=== PATIENT | female | born 2000 | race Caucasian/White ===

== ENCOUNTER 2023-03-03 10:29 | Emergency (ER) | payer MEDICAID, SELFPAY ==
[2023-03-03 10:31] VITALS: BP 114/59; PULSE 73; RESP 18; TEMP 36.6; O2SAT 98; BMI 25.7
--- NOTE | 2023-03-03 10:48 | ED.GENADULT ---
HPI - General Adult General Chief complaint: General Medical Stated complaint: medication Time Seen by Provider: 03/03/23 10:43 Source: patient and family Mode of arrival: ambulatory Limitations: no limitations History of Present Illness HPI narrative: 23-year-old female with history of depression who is currently on Paxil 20 mg daily presents the ER seeking medication refill. Patient reports she was prescribed Paxil by her psychiatrist 2 months ago. She has been taking it since. She ran out of her medication 1 week ago. She is unable to get hold of her psychiatrist to give her a refill. She does have an appointment on Sunday to see her psychiatrist. She reports she has been feeling dizzy, nauseous and generally unwell since running out of the medication. She denies any SI or HI. Related Data Previous Rx's Medication Instructions Recorded loratadine 10 mg tablet 10 mg PO DAILY #30 tabs 09/19/21 paroxetine HCl 20 mg tablet (Paxil) 20 mg PO DAILY #14 tabs 03/03/23 Allergies Allergy/AdvReac Type Severity Reaction Status Date / Time cat and dogs Allergy Unknown watery eyes Uncoded 05/14/20 00:00 Review of Systems Review of Systems: Yes all other systems are reviewed and are negative Constitutional: Constitutional: Reports no additional constitutional complaints, Denies body ache(s), Denies chills, Denies fever(s), Denies headache(s) and Denies weakness Eyes: Eyes: Reports no additional eye complaints and Denies change in vision ENT: Reports system reviewed and no additional complaints, except as documented, Reports dizziness, Denies headache(s), Denies nasal congestion, Denies nasal discharge and Denies neck pain Cardiovascular: Cardiovascular: Reports no additional cardiovascular complaints, Denies chest pain, Denies leg edema and Denies dyspnea Respiratory: Respiratory: Reports no additional respiratory complaints, Denies cough and Denies dyspnea Gastrointestinal: Gastrointestinal: Reports no additional gastrointestinal complaints, Denies abdominal pain, Denies diarrhea, Reports nausea and Denies vomiting Genitourinary: Genitourinary: Reports no additional female genitourinary complaints and Denies urinary incontinence Musculoskeletal: Musculoskeletal: Reports no additional musculoskeletal complaints, Denies back pain, Denies arthralgias, Denies joint swelling, Denies neck pain, Denies numbness and Denies tingling Integumentary/Breasts: Skin/Breast: Reports system reviewed and no additional complaints, except as docu and Denies rash Neurologic: Reports system reviewed and no additional complaints, except as documented, Reports dizziness, Denies headache(s), Denies numbness, Denies tingling and Denies weakness PMFSH Past Medical History Attestation statement: The following information was validated with the patient. Source: old records reviewed and nursing notes reviewed Social History Social History Alcohol intake: never Smoked in Last 30 Days: No Use of substances other than those prescribed or required for medical reasons: Yes Substance Use Type: Marijuana Advance Directives: No Advance Directives Information Provided: No Physical Exam ED Vital Signs: Vital Signs - 24 hr 03/03/23 10:31 Temperature 98 F Pulse Rate 73 Respiratory Rate 18 Blood Pressure 114/59 L Pulse Oximetry 98 Oxygen Delivery Method Room Air BMI result Body Mass Index 25.7 Const General: cooperative, healthy appearing, comfortable and no acute distress Orientation/consciousness: patient oriented x3 Limitations: no limitations HENMT Head: Yes normal to inspection Eyes General: appearance normal, both eyes and all related structures Neck Neck: Yes normal visual inspection Chest Chest palpation & inspection: normal inspection of the chest Resp Effort & Inspection: normal respiratory effort Cardio Peripheral pulses: Peripheral pulses 2+ throughout Skin General skin exam: no rashes or lesions noted Neuro General: patient oriented x3 and moves all extremities Cognition (Neuro): normal cognition Gait exam (Neuro): Normal gait present Medical Decision Making Medical Decision Making MDM Narrative: 23 yo female here seeking medication refill for paxil which she ran out of 1 week ago. Unable to contact her prescriber. She does have f/u on Sunday. C/o dizziness, nausea, generally unwell. VSS NO SI/HI. Will give refill for 2 weeks of Paxil. Differential Diagnosis Differential Diagnoses: The differential diagnosis associated with the presentation includes Discharge Plan Discharge Clinical Impression: Medication refill Patient Disposition: Home, Self-Care Instructions: Medicine Refill (ED) Additional Instructions: Keep your appointment with your psychiatrist on Sunday Prescriptions: New paroxetine HCl [Paxil] 20 mg tablet 20 mg PO DAILY Qty: 14 0RF Interventions: ED Discharge Assessment Last Done: 03/03/23 10:59 Discharge Date/Time: 03/03/23 11:00
--- OUTSIDE RECORDS SUMMARY | 2023-03-03 10:54 | XMS_ITS | Continuity of Care Document ---
Author Name Unknown Organization [facility] Address [address] [place] [address]- Care Team Providers Care Legal Recovery Specialist Name Role Phone Sarah Parisi MD Primary Care Physician Encounter [facility] [place] Date(s): 05/02/22 - 06/01/22 [facility] [address], [place] [address] Attending Physician: Sergio Singh DO Referring Physician: Sarah Parisi MD Allergies, Adverse Reactions, Alerts No Known Allergies Medications Atrovent HFA 17 mcg/inh inhalation aerosol 2 puffs, Inhalation, Every 4 hours, use with spacer chamber not to exceed 12 puffs/day Use prior toexercise, # 1 each, 2 Refills, Maintenance, 12/18/13 16:19:05, 2 puffs Inhalation Every 4 hours,Instr:use with spacer chamber; not to exceed 12 puffs... Start Date: 12/18/13 Status: Ordered ProAir HFA 90 mcg/inh inhalation aerosol with adapter 2 puffs, Inhalation, Every 4 hours, PRN for wheezing, use with spacer chamber as directed 15 minutes before exercise, # 1 each, 4 Refills, Maintenance, 01/29/15 14:26:33, Aerosol, 2 puffs Inhalation Every 4 hours,PRN:for wheezing,Instr:use with space... Start Date: 01/29/15 Status: Ordered Singulair 10 mg oral tablet 1 tablet = 10 mg, By Mouth, Daily in PM, # 30 tablet, 6 Refills, Maintenance, 01/29/15 14:25:59, Tablet, 1 tablet By Mouth Daily in PM Start Date: 01/29/15 Status: Ordered Social History Social History Type Response Smoking Status Never smoker; Tobacc o user in household: No entered on: 01/29/15 Sex
--- OUTSIDE RECORDS SUMMARY | 2023-03-03 10:54 | XMS_ITS | Continuity of Care Document ---
Author Name Unknown Organization [facility] Address [address] [place] [address]- Care Team Providers Care Ceramic Sprayer Name Role Phone Po Sarah TOLEDO Primary Care Physician [place] [facility] [place] - [place]/22 [facility] [address], [place] [address] Attending Physician: Linda Beck Admitting Physician: AdmtrLinda Referring Physician: Admtr, Ar8 Allergies, Adverse Reactions, Alerts No Known Allergies [...]
--- OUTSIDE RECORDS SUMMARY | 2023-03-03 10:54 | XMS_ITS | Continuity of Care Document ---
Author Name Unknown Organization [facility] Address [address] [place] [address]- Care Team Providers Care Science Job Titles Name Role Phone Sarah Parisi MD Primary Care Physician [place] [facility] [place] 01/[place] - 01/09/22 [facility] [address], [place] [email or web address] Attending Physician: Sergio Singh DO Referring Physician: [...] in PM Start Date: 01/29/15 Status: Ordered Vital Signs Most recent to oldest [Reference Range]: 1 Height 160.0 cm (01/02/22 3:27 PM) Oxygen Saturation [94-100 %] 100 % (01/02/22 3:27 PM) Pulse Rate [55-90 bpm] 74 bpm (01/02/22 3:27 PM) Blood Pressure [90-138/55-84 mm Hg] 119/ 69mm Hg (01/02/22 3:27 PM) Temperature [96.8-100.4 DegF] 98.7 DegF (01/02/22 3:27 PM) Mode of Delivery (Oxygen) Room air (01/02/22 3:27 PM) Blood pressure sites Arm, right (01/02/22 3:27 PM) Temperature Route Temporal (01/02/22 3:27 PM) Social History Social History Type Response Smoking Status Never smoker; Tobacc o user in household: No entered on: 01/29/15 Sex
--- OUTSIDE RECORDS SUMMARY | 2023-03-03 10:54 | XMS_ITS | Continuity of Care Document ---
Author Name Unknown Organization [facility] Address [address] [place] [address]- Care Team Providers Care Lead Massage Therapist Name Role Phone Po Sarah TOLEDO Primary Care Physician [place] [facility] [place] 01/02/22 - 02/01/22 [facility] [address] [place], [place] [address] [place] Attending Physician: Linda Beck Admitting Physician: AdmtrLinda [...]
--- NOTE | 2023-03-03 10:57 | PC.NURSE ---
Patient presents for refill of prescription Paxil. Patient has an appointment with her psychiatrist on sunday and needs more medication to get her to that appointment. Patient is well appearing, no complaints at this time.
== END 2023-03-03 11:00 | disposition home or self-care (01) ==
PROVIDERS: Emergency Provider Emergency Medicine; PCP Internal Medicine
DX: Z76.0 Encounter for issue of repeat prescription (principal); F32.A Depression, unspecified; F12.90 Cannabis use, unspecified, uncomplicated
CPT/HCPCS: 99282; 99283

== ENCOUNTER 2024-03-27 09:14 | Outpatient (AMB) | payer OTHER, SELFPAY ==
[2024-03-27 09:17] VITALS: BP 122/82; PULSE 85; O2SAT 98; BMI 28.5
--- NOTE | 2024-03-27 09:17 | A.OFFPC_ITS ---
Vital Signs 03/27/24 09:17 Height 5 ft 3 in Weight 161 lb BMI 28.5 BP 122/82 Blood Pressure Location Lt brachial Position Sitting Pulse 85 Pulse Source Pulse Oximeter Pulse Oximetry (%) 98 Oxygen Delivery Method Room Air Intake Visit Reasons: follow up Administrative Support Manager Required: No Fitness Professional: Not Required per policy Accompanied by: Self / Same As Patient Allergies cat and dogs Allergy (Unknown, Uncoded 03/27/24 09:17) watery eyes Medication List - Last Reconciled 03/27/24 by Sarah Parisi MD albuterol sulfate 90 mcg/actuation (ProAir HFA) 2 puffs inhalation Q4-6H PRN diphenhydramine HCl (Benadryl Allergy) 25 mg PO BEDTIME PRN fexofenadine (Bernarda Allergy) 180 mg PO DAILY fluticasone propionate 50 mcg/actuation (Allergy Relief (fluticasone)) 2 sprays intranasal DAILY 1 month hydroxyzine HCl 50 mg PO BID PRN mometasone (Asmanex Twisthaler) 1 inh inhalation QPM montelukast (Singulair) 10 mg PO BEDTIME paroxetine HCl (Paxil) 20 mg PO DAILY Tobacco use date assessed: 03/27/24 Dental Screening Dental Screen Date: 03/27/24 Did you have a dental visit in the last 12 months?: Yes Did you have a dental problem in the last 6 months where you did not have access to dental care?: No Was dental information given to patient?: Patient has dentist HPI follow up HPI Details 24-year-old overweight female with a his tory of asthma and generalized anxiety disorder coming in for follow-up. Patient was last seen in 2021. moves to [place]- takes paroxetine. doing good decline counselling. asthma - patient's asthma is not under control as well as allergies [facility] Medical History (Updated 03/27/24 @ 10:07 by Sarah Parisi MD) Asthma, mild intermittent, poorly controlled Exercise-induced asthma Surgical History (Updated 07/27/23 @ 15:05 by Samia Little) No pertinent past surgical history Family History Mother No problems noted. Father No problems noted. Brother Crohn's disease Other Mental health disorder Social History Housing: Apartment Alcohol intake: current Alcohol intake frequency: holidays/special occasions only Patient Tobacco Use Status: Never used Tobacco Second Hand Smoke Exposure: No Substance Use Type: Marijuana service: No Current occupational status: employed Cognitive needs: No Hearing needs: No Vision needs: Yes Questionnaire PHQ-9 Over the last 2 weeks, how often have you been bothered by any of the following problems? 1. Little interest or pleasure in doing things: not at all 2. Feeling down, depressed, or hopeless: not at all 3. Trouble falling or staying asleep, or sleeping too much: not at all 4. Feeling tired or having little energy: not at all 5. Poor appetite or overeating: not at all 6. Feeling bad about yourself - or that you are a failure or have let yourself or your family down: not at all 7. Trouble concentrating on things, such as reading the newspaper or watching television: not at all 8. Moving or speaking so slowly that other people could have noticed. Or the opposite - being so fidgety or restless that you have been moving around a lot more than usual: not at all 9. Thoughts that you would be better off or of hurting yourself in some way: not at all Total score: 0 Source: Developed by Drs. Boogie Evans, Joanne Martinez, Dashawn Painting and colleagues, with an educational kermit from [employer]. Thrive Questionnaire Date Thrive assessed: 03/27/24 I am a: Patient What is your living situation today?: I have a steady place to live Within the past 12 months, did the food you bought not last and you didn't have the money to get more?: Never true Within the past 12 months, did you worry whether your food would run out before you got money to buy more?: Never true Do you have trouble paying for medicines?: No Do you have trouble getting transportation to medical appointments?: No Do you have trouble paying your heating and electricity bill?: No Do you have trouble taking care of your child, family member or friend?: No Do you have trouble with day-to-day activities such as bathing, preparing meals, shopping, managing finances, etc.?: No Are you currently unemployed and looking for a job?: No Are you interested in more education?: No Please select the resources that you would like help with: None THRIVE Score: 0 AUDIT C Alcohol Use Questionnaire (AUDIT-C) 1. How often do you have a drink containing alcohol?: Monthly or less 2. How many drinks containing alcohol do you have on a typical day when you are drinking?: 1 or 2 3. How often do you have six or more drinks on one occasion?: Never Total Score: 1 SONIA-7 AMB Questionnaire SONIA-7 Date SONIA - 7 assessed: 03/27/24 Feeling nervous, anxious, or on edge: 0 = Not at all Not being able to stop or control worryin = Not at all Worrying too much about different things: 0 = Not at all Trouble relaxin = Not at all Being so restless that it is hard to sit still: 0 = Not at all Becoming easily annoyed or irritable: 0 = Not at all Feeling afraid as if something awful might happen: 0 = Not at all Total SONIA-7 score (0-4 normal; 5-9 mild; 10-14 moderate; 15-21 severe): 0 Source: Developed by Drs. Boogie Evans, Joanne Martinez, Dashawn Painting and colleagues, with an educational kermit from [employer]. Physical exam (Primary Care) Vital Signs: Last Vital Signs Pulse 85 03/27/24 09:17 BP 122/82 03/27/24 09:17 Pulse Ox 98 03/27/24 09:17 Oxygen Delivery Method Room Air 03/27/24 09:17 BMI result Body Mass Index 28.5 Tobacco/Smoking Status: Tobacco use Status Tobacco use date assessed 03/27/24 03/27/24 09:19 Patient Tobacco Use Status Never used Tobacco 03/27/24 09:19 PHQ-9: PHQ-9 Score PHQ-9: Total score 0 03/27/24 09:58 Thrive Assessment: Date of Thrive Assessment Date Thrive assessed 03/27/24 03/27/24 09:19 Const General: alert; No acute distress Eyes Conjunctivae: conjunctivae normal Resp Auscultation: clear to auscultation bilaterally Cardio Rate: regular rate Rhythm: regular rhythm GI Inspection: Yes normal to inspection Extrem General: Yes normal to inspection and No edema Immunizations pneumoc 20-vira conj-dip cr(PF) 0.5 mL IM syringe Performing Provider: Sarah Parisi MD [facility] Administered by: NATACHA Upton on 03/27/24 10:15 Dose Route Admin Location Dispensed Lot Number Expiration Date [employer] Manager 0.5 mL IM Left Deltoid 0.5 mL [id number] 06/20/25 [employer] V[employer] Given Date VIS Provided VIS Publication Date 03/27/24 Single Vaccine 21 Eligibility Eligibility Date Funding Source Not [facility] Eligible 03/27/24 Private Assessment and Plan Assessment & Plan (1) Overweight (BMI 25.0-29.9): Code(s): E66.3 - Overweight Plan: Diet and exercise (2) Asthma: Code(s): J45.909 - Unspecified asthma, uncomplicated Plan: Patient on albuterol and Singulair. Had a long discussion with regards to control of asthma patient is not under control and will start on Asmanex for controllers (3) Generalized anxiety disorder: Code(s): F41.1 - Generalized anxiety disorder Plan: Continue with present therapy and discussed about counseling but patient declined (4) Cervical cancer screening: Code(s): Z12.4 - Encounter for screening for malignant neoplasm of cervix Plan: Patient is reminded (5) Allergic rhinitis: Code(s): J30.9 - Allergic rhinitis, unspecified Plan: Allergy medication sent in Orders: Orders Pneumococcal 20 Immunization Today Z23 - Encounter for immunization Medications: New fexofenadine (Bernarda Allergy) 180 mg PO DAILY 30 tabs 3RF J30.9 - Allergic rhinitis, unspecified pneumoc 20-vira conj-dip cr(PF) 0.5 mL IM ONCE 0.5 mL 0RF Z23 - Encounter for immunization mometasone (Asmanex Twisthaler) 1 inh inhalation QPM 1 ea 5RF J45.909 - Unspecified asthma, uncomplicated Refilled paroxetine HCl (Paxil) 20 mg PO DAILY 30 tabs 3RF F41.1 - Generalized anxiety disorder montelukast (Singulair) 10 mg PO BEDTIME 90 tabs 0RF J30.9 - Allergic rhini tis, unspecified Discontinued loratadine (Allergy Relief (loratadine)) Discontinued Reason: Duplicate 10 mg PO DAILY 90 tabs 1RF Coding Level of Care Code Est Pt Level 4 (99981) Diagnoses Overweight (BMI 25.0-29.9) E66.3 Asthma J45.909 Generalized anxiety disorder F41.1 Cervical cancer screening Z12.4 Allergic rhinitis J30.9
== END 2024-03-27 10:23 | disposition home or self-care (01) ==
PROVIDERS: PCP Internal Medicine; Visit Provider Internal Medicine
DX: E66.3 Overweight (principal); J45.909 Unspecified asthma, uncomplicated; F41.1 Generalized anxiety disorder; Z12.4 Encounter for screening for malignant neoplasm of cervix; J30.9 Allergic rhinitis, unspecified; Z23 Encounter for immunization
CPT/HCPCS: 90471; 90677; 99214

== ENCOUNTER 2024-07-01 15:36 | Outpatient (AMB) | payer OTHER, SELFPAY ==
--- NOTE | 2024-07-01 15:38 | MHC.PC.OV ---
Vital Signs 07/01/24 15:39 Height 5 ft 3 in Weight 157 lb 6 oz BMI 27.9 BP 120/60 Blood Pressure Location Lt brachial Position Sitting Pulse 72 Pulse Source Pulse Oximeter Pulse Oximetry (%) 100 Oxygen Delivery Method Room Air Intake Visit Reasons: annual exam Intake Note: Patient is here today for a physical. Cargo Router Required: No Unified Communications Architect: Not Required per policy Accompanied by: Self / Same As Patient Allergies cat and dogs Allergy (Unknown, Uncoded 07/01/24 15:52) watery eyes Medication List - Last Reconciled 07/01/24 by Tamika Collins PA-C albuterol sulfate 90 mcg/actuation 2 puffs inhalation Q4-6H PRN diphenhydramine HCl (Benadryl Allergy) 25 mg PO BEDTIME PRN fexofenadine (Bernarda Allergy) 180 mg PO DAILY fluticasone propionate 50 mcg/actuation (Allergy Relief (fluticasone)) 2 sprays intranasal DAILY 1 month hydroxyzine HCl 50 mg PO BID PRN montelukast (Singulair) 10 mg PO BEDTIME paroxetine HCl (Paxil) 20 mg PO DAILY Tobacco use date assessed: 07/01/24 Dental Screening Dental Screen Date: 03/27/24 HPI annual exam HPI Details 24-year-old female with past medical history asthma and generalized anxiety disorder last seen by Dr. Parisi coming in for annual visit. Patient states she is feeling generally well however she does have some episodes of weakness and fatigue that happen randomly throughout the week. These episodes are sometimes associated with lightheadedness and dizziness without nausea or vomiting. She states she drinks plenty of water and will have snacks throughout the day. No concern for at this time. She is moving to [place] next month and will establish care out there. She does have a history of asthma which is well managed on her albuterol which she uses 1-2 times per week without any nighttime awakenings. [facility] Medical History Asthma, mild intermittent, poorly controlled Exercise-induced asthma Surgical History No pertinent past surgical history Family History Mother No problems noted. Father No problems noted. Brother Crohn's disease Other Mental health disorder Social History Housing: Apartment Alcohol intake: current Alcohol intake frequency: holidays/special occasions only Patient Tobacco Use Status: Never used Tobacco e-Cigarette/Vaping Use: Never Used Second Hand Smoke Exposure: No Substance Use Type: Marijuana service: No Current occupational status: employed Cognitive needs: No Hearing needs: No Vision needs: Yes Female Reproductive History Menstrual control method: none Total pregnancies: 0 Date of last pap smear: 09/12/23 History of abnormal pap smear: No History of STI: No Questionnaire PHQ-9 Over the last 2 weeks, how often have you been bothered by any of the following problems? 1. Little interest or pleasure in doing things: not at all 2. Feeling down, depressed, or hopeless: not at all 3. Trouble falling or staying asleep, or sleeping too much: several days 4. Feeling tired or having little energy: several days 5. Poor appetite or overeating: several days 6. Feeling bad about yourself - or that you are a failure or have let yourself or your family down: not at all 7. Trouble concentrating on things, such as reading the newspaper or watching television: not at all 8. Moving or speaking so slowly that other people could have noticed. Or the opposite - being so fidgety or restless that you have been moving around a lot more than usual: not at all 9. Thoughts that you would be better off or of hurting yourself in some way: not at all Total score: 3 Depression Screening Interpretation: Positive Depression Screening Follow-up: Existing condition and In treatment Depression Screening Done: Yes Source: Developed by Drs. Boogie Evans, Joanne Martinez, Dashawn Painting and colleagues, with an educational kermit from [employer]. Thrive Questionnaire Date Thrive assessed: 07/01/24 I am a: Patient What is your living situation today?: I have a steady place to live Within the past 12 months, did the food you bought not last and you didn't have the money to get more?: Never true Within the past 12 months, did you worry whether your food would run out before you got money to buy more?: Never true Do you have trouble paying for medicines?: No Do you have trouble getting transportation to medical appointments?: No Do you have trouble paying your heating and electricity bill?: No Do you have trouble taking care of your child, family member or friend?: No Do you have trouble with day-to-day activities such as bathing, preparing meals, shopping, managing finances, etc.?: No Are you currently unemployed and looking for a job?: No Are you interested in more education?: No Please select the resources that you would like help with: None Currently or been in a relationship where the following occur: No concerns reported THRIVE Score: 0 AUDIT C Alcohol Use Questionnaire (AUDIT-C) 1. How often do you have a drink containing alcohol?: 2-4 times a month 2. How many drinks containing alcohol do you have on a typical day when you are drinking?: 1 or 2 3. How often do you have six or more drinks on one occasion?: Less than monthly Total Score: 3 SONIA-7 AMB Questionnaire SONIA-7 Date SONIA - 7 assessed: 07/01/24 Feeling nervous, anxious, or on edge: 0 = Not at all Not being able to stop or control worryin = Not at all Worrying too much about different things: 0 = Not at all Trouble relaxin = Not at all Being so restless that it is hard to sit still: 0 = Not at all Becoming easily annoyed or irritable: 0 = Not at all Feeling afraid as if something awful might happen: 0 = Not at all Total SONIA-7 score (0-4 normal; 5-9 mild; 10-14 moderate; 15-21 severe): 0 Source: Developed by Drs. Boogie Evans, Joanne Martinez, Dashawn Painting and colleagues, with an educational kermit from [employer]. SONIA-7 Assessment Billing SONIA-7 Assessment Tool: SONIA-7 Assessment 80902 Review of Systems Const Denies body aches, Reports fatigue, Denies fever(s), Denies frequent falls, Denies headache(s) and Denies weakness Eyes Reports no additional complaints and Denies change in vision ENT Denies dysphagia, Denies dizziness, Denies facial pain, Denies headache(s), Denies nasal congestion and Denies odynophagia Card Denies chest pain, Denies syncope, Denies irregular heart rhythm, Denies leg edema, Reports lightheadedness and Denies dyspnea Resp Denies cough and Denies dyspnea GI Denies constipation, Denies dysphagia, Denies dyspepsia, Denies diarrhea, Denies nausea, Denies odynophagia and Denies vomiting Denies urinary frequency, Denies dysuria, Denies urinary hesitancy and Denies urinary urgency Musc Denies back pain and Denies myalgias Skin/Breast Reports system reviewed and no additional complaints, except as documented Neuro Denies dizziness, Denies syncope, Denies frequent falls, Denies headache(s) and Denies weakness Psych Reports no additional complaints Endo Reports fatigue Physical exam (Primary Care) Vital Signs: Last Vital Signs Pulse 72 07/01/24 15:39 BP 120/60 07/01/24 15:39 Pulse Ox 100 07/01/24 15:39 Oxygen Delivery Method Room Air 07/01/24 15:39 BMI result Body Mass Index 27.9 Tobacco/Smoking Status: Tobacco use Status Tobacco use date assessed 07/01/24 07/01/24 15:44 Patient Tobacco Use Status Never used Tobacco 07/01/24 15:44 e-Cigarette/Vaping Use Never Used 07/01/24 15:44 PHQ-9: PHQ-9 Score PHQ-9: Total score 3 07/01/24 15:44 Depression Screening Interpretation: Positive Depression Screening Follow-up: Existing condition and In treatment Thrive Assessment: Date of Thrive Assessment Date Thrive assessed 07/01/24 07/01/24 15:44 Currently or been in a relationship where the following occur: No concerns reported Advance Care Planning discussion: Completed/Scanned Forms completed: Health Care Proxy and MOLST Time spent: 1-15 minutes, on File Actual minutes spent: 5 Did not discuss due to Cultural/Spiritual beliefs: No Const General: cooperative, healthy appearing, comfortable and no acute distress Orientation/consciousness: patient oriented x3 HENMT Head: Yes normocephalic Ears: hearing grossly normal bilaterally, external ears normal, TM's normal bilaterally and EAC's normal General nose exam: Normal external nose present Face and sinus: Yes normal facial exam and Yes sinuses nontender Mouth: Normal oral and palatal mucosa present and tongue normal Throat: Yes posterior oropharynx normal Eyes General: appearance normal, both eyes and all related structures Conjunctivae: conjunctivae normal Pupils: Equal, round and reactive pupils present EOM: EOMs intact bilaterally and No Nystagmus present Neck Neck: Yes normal visual inspection, Yes full ROM and Yes no lymphadenopathy Chest Chest palpation & inspection: normal inspection of the chest Resp Effort & Inspection: normal respiratory effort Auscultation: clear to auscultation bilaterally, no crackles, no rales, no rhonchi, no wheezes and breath sounds present Cardio Rate: regular rate Rhythm: regular rhythm Peripheral pulses: radial pulses present and dorsalis pedis present GI Inspection: Yes normal to inspection and No Abdominal wall edema Palpation (GI): Soft to palpation, not firm and nontender Auscultation: normal bowel sounds Rectal Exam - Female: deferred General: Yes no CVA tenderness Back/Spine/Pelvis Back: no CVA tenderness Skin General skin exam: no rashes or lesions noted Neuro General: patient oriented x3 Cranial nerves: Yes Equal, round and reactive pupils present, Yes Midline tongue present, Yes Ability to bilaterally elevate shoulders present and No Nystagmus present Gait exam (Neuro): Normal gait present Extrem General: Yes normal to inspection, Yes full ROM, No no pedal edema and No edema Psych Speech and movement: Normal speech and movement present Affect: normal affect Insight: Good insight present (Psych) Judgement: Good judgement present (Psych) Assessment and Plan Assessment & Plan (1) Annual physical exam: Code(s): Z00.00 - Encounter for general adult medical examination without abnormal findings Plan: Patient is up-to-date on all recommended routine screenings and vaccinations for her age. Updated blood work ordered he will be discussed at her next visit in 3 weeks prior to her moving to [place]. We will maintain the management of her medications until she can establish a provider out there. (2) Asthma: Code(s): J45.909 - Unspecified asthma, uncomplicated Plan: Well managed on albuterol as needed and montelukast. Continue to avoid triggers such as allergens and smoke. (3) Generalized anxiety disorder: Code(s): F41.1 - Generalized anxiety disorder Plan: Continue on paroxetine 20 mg daily. Patient feels her anxiety is well managed. (4) Lightheadedness: Code(s): R42 - Dizziness and giddiness Plan: Patient states she drinks a good amount of water and has regular meals. Ordered for blood work to look for underlying cause advised patient to maintain good hydration and eat 3 sq meals with protein a day. Also advised to keep a log her symptoms and when they occur and what she was doing at the time. Plan This note was constructed using voice recognition software. While every effort has been made to ensure accuracy and commission clerk, still areas may have been included sometimes these areas may affect the content or meeting of the given symptoms. Total time spent caring for the patient today was 30 minutes. This includes time spent before the visit reviewing the chart, time spent during the visit, and time spent after the visit and documentation. Orders: Orders Complete Blood Count Auto Diff Today Z00.00 - Encounter for general adult medical examination without abnormal findings Comprehensive Met. Panel Today Z00.00 - Encounter for general adult medical examination without abnormal findings Free T4 (Free Thyroxine) Today Z00.00 - Encounter for general adult medical examination without abnormal findings Vitamin B12 and Folate Today Z00.00 - Encounter for general adult medical examination without abnormal findings Hemoglobin A1c Today Z00.00 - Encounter for general adult medical examination without abnormal findings TSH reflex Free T4 Today Z00.00 - Encounter for general adult medical examination without abnormal findings Vitamin D 25-OH (D2 and D3) Today Z00.00 - Encounter for general adult medical examination without abnormal findings UA CC w/rflx Micro + Cult Today Z00.00 - Encounter for general adult medical examination without abnormal findings Medications: Changed From albuterol sulfate 90 mcg/actuation (ProAir HFA) 2 puffs inhalation Q4-6H PRN 8.5 grams 0RF shortness of breath or wheezing F41.9 - Anxiety disorder, unspecified, J45.990 - Exercise induced bronchospasm To albuterol sulfate 90 mcg/actuation 2 puffs inhalation Q4-6H PRN 8.5 grams 0RF shortness of breath or wheezing F41.9 - Anxiety disorder, unspecified, J45.990 - Exercise induced bronchospasm Refilled paroxetine HCl (Paxil) 20 mg PO DAILY 30 tabs 3RF F41.1 - Generalized anxiety disorder Coding Level of Care Code Est Pt Prev Care 18-39y(27960) Diagnoses Annual physical exam Z00.00 Asthma J45.909 Generalized anxiety disorder F41.1 Lightheadedness R42 Additional Codes SONIA-7 Assessment Billing - SONIA-7 Assessment Tool: SONIA-7 Assessment 33454 ([id number]) Vital Signs *Quality* - Advance Care Planning discussion: Completed/Scanned ([id number]) Vital Signs *Quality* - Time spent: 1-15 minutes, on File ([id number])
[2024-07-01 15:39] VITALS: BP 120/60; PULSE 72; O2SAT 100; BMI 27.9
== END 2024-07-01 16:09 | disposition home or self-care (01) ==
PROVIDERS: PCP Internal Medicine
DX: Z00.00 Encounter for general adult medical examination without abnormal findings (principal); J45.909 Unspecified asthma, uncomplicated; F41.1 Generalized anxiety disorder; R42 Dizziness and giddiness
CPT/HCPCS: 1123F; 99395

== ENCOUNTER 2024-07-01 16:13 | Outpatient (REF) | payer OTHER, SELFPAY ==
[2024-07-01 16:30] LABS: MANUAL DIFF FLAG NO
[2024-07-01 17:16] LABS: Basophils Percent Auto 0.1 % (0-2); Eosinophils Absolute Auto 0.3 X10*3/uL (0.0-0.4); Hematocrit 39.4 % (37.0-47.0); Hemoglobin 13.4 g/dl (12.0-16.0); Imm Gran Abs Auto 0.02 X10*3/uL (0.00-0.03); Imm Gran Pct Auto 0.2 % (0.0-0.4); Lymphocytes Absolute Auto 2.7 X10*3/uL (1.2-4.9); Lymphocytes Percent Auto 31.9 % (20-40); Mean Corpuscular Hemoglobin 30.9 pg (27.0-33.0); Mean Corpuscular Volume 90.8 fL (80.0-98.0); Mean Platelet Volume 10.9 fL (9.4-12.3); Monocytes Absolute Auto 0.5 X10*3/uL (0.1-1.2); Monocytes Percent Auto 5.6 % (2-11); Neutrophils Percent Auto 59.2 % (45-73); Platelet Count 261 X10*3/uL (160-400); Red Blood Count 4.34 X10*6/uL (4.20-5.50); White Blood Count 8.5 X10*3/uL (4.8-10.8)
[2024-07-01 17:33] LABS: Appearance Urine Cloudy; Color Urine Yellow; Glucose Urine UA Negative (Negative); Leukocyte Esterase Urine Moderate (2+) (Negative); Nitrite Urine Negative (Negative); PH 5.5 (5.0-9.0); UMIC TRIGGER UACC YES; Urine Blood Negative (Negative); Urine Ketones Negative (Negative); Urine Protein Negative (Neg-Trace)
[2024-07-01 17:44] LABS: Bacteria Urine 4+ (None Seen); Hyaline Casts Urine 0-2 /LPF (0-2); RBC Urine 0-2 /HPF (0-2); UACC Culture Trigger YES
[2024-07-01 18:09] LABS: Alanine Aminotransferase 16 U/L (0-31); Albumin Level 4.2 g/dL (3.5-5.0); Alkaline Phosphatase 52 U/L (39-117); Anion Gap 11 (12-20); Aspartate Amino Transferase 18 U/L (5-31); Bilirubin Total 0.2 mg/dL (0.0-1.0); Blood Urea Nitrogen 9 mg/dL (9-16); Calcium 9.3 mg/dL (8.4-10.2); Carbon Dioxide 26 mmol/L (22-29); Chloride 106 mmol/L (96-108); Estimated Glomerular Filt Rate > 60; Glucose Random 89 mg/dL (60-115); Potassium 3.8 mmol/L (3.3-5.1); Sodium 139 mmol/L (135-145); Total Protein 6.6 g/dL (6.5-8.0)
[2024-07-01 18:27] LABS: Free T4 (Free Thyroxine) 0.79 ng/dL (0.71-1.85); TSH reflex Free T4 1.33 uIU/mL (0.32-4.0)
[2024-07-01 20:18] LABS: Folate 8.8 ng/mL (> or = 4.0); Vitamin B12 454 pg/mL (200-900)
[2024-07-02 05:19] LABS: Estimated Average Glucose 94 mg/dL; Hemoglobin A1c % 4.9 % (<6.0)
[2024-07-05 15:48] LABS: Vitamin D 25-OH, D2 <4 ng/mL; Vitamin D 25-OH, D3 38 ng/mL; Vitamin D 25-OH, Total 38 ng/mL (30-100)
== END 2024-07-01 16:14 | disposition home or self-care (01) ==
LOC: HO.LAB 16:13
PROVIDERS: PCP Internal Medicine
DX: Z00.00 Encounter for general adult medical examination without abnormal findings (principal); Z13.1 Encounter for screening for diabetes mellitus
CPT/HCPCS: 36415; 80053; 81001; 82306; 82607; 82746; 83036; 84439; 84443; 85025; 87086

== ENCOUNTER 2024-07-30 14:28 | Outpatient (AMB) | payer OTHER, SELFPAY ==
--- NOTE | 2024-07-30 14:28 | MHC.PC.OV ---
Intake Visit Reasons: lab results Allergies cat and dogs Allergy (Unknown, Uncoded 07/30/24 14:29) watery eyes Medication List - Last Reconciled 07/30/24 by Tamika Collins PA-C albuterol sulfate 90 mcg/actuation 2 puffs inhalation Q4-6H PRN diphenhydramine HCl (Benadryl Allergy) 25 mg PO BEDTIME PRN fexofenadine (Bernarda Allergy) 180 mg PO DAILY fluticasone propionate 50 mcg/actuation (Allergy Relief (fluticasone)) 2 sprays intranasal DAILY 1 month hydroxyzine HCl 50 mg PO BID PRN montelukast (Singulair) 10 mg PO BEDTIME paroxetine HCl 20 mg PO DAILY Tobacco use date assessed: 07/01/24 Dental Screening Dental Screen Date: 03/27/24 HPI lab results HPI Details 24-year-old female with past medical history asthma and generalized anxiety disorder last seen June 2024 presented to the office via telehealth for review of lab work. Patient states she still feels occasional lightheadedness 1-2 times per week that typically last for a few seconds and resolved spontaneously. She denies any triggers or relieving factors. She does notice she has these episodes more often when she misses or skips doses of paroxetine. [facility] Medical History Asthma, mild intermittent, poorly controlled Exercise-induced asthma Surgical History No pertinent past surgical history Family History Mother No problems noted. Father No problems noted. Brother Crohn's disease Other Mental health disorder Social History Housing: Apartment Alcohol intake: current Alcohol intake frequency: holidays/special occasions only Patient Tobacco Use Status: Never used Tobacco e-Cigarette/Vaping Use: Never Used Second Hand Smoke Exposure: No Substance Use Type: Marijuana service: No Current occupational status: employed Cognitive needs: No Hearing needs: No Vision needs: Yes Questionnaire Thrive Questionnaire Date Thrive assessed: 07/01/24 AUDIT C Alcohol Use Questionnaire (AUDIT-C) 1. How often do you have a drink containing alcohol?: 2-4 times a month 2. How many drinks containing alcohol do you have on a typical day when you are drinking?: 1 or 2 3. How often do you have six or more drinks on one occasion?: Less than monthly Total Score: 3 SONIA-7 AMB Questionnaire SONIA-7 Date SONIA - 7 assessed: 07/01/24 Source: Developed by Drs. Boogie Evans, Joanne Martinez, Dashawn Painting and colleagues, with an educational kermit from [email or web address]. Review of Systems Const Denies fever(s) and Denies headache(s) Eyes Reports no additional complaints ENT Reports dizziness and Denies headache(s) Card Denies chest pain, Denies syncope, Denies irregular heart rhythm, Denies lightheadedness and Denies dyspnea Resp Denies dyspnea GI Denies abdominal pain, Denies diarrhea and Denies nausea Reports no additional complaints Musc Reports no additional complaints and Denies abnormal gait Skin/Breast Reports system reviewed and no additional complaints, except as documented Neuro Denies abnormal gait, Reports dizziness, Denies syncope and Denies headache(s) Psych Reports no additional complaints Physical exam (Primary Care) Tobacco/Smoking Status: Tobacco use Status Tobacco use date assessed 07/01/24 07/30/24 14:29 Patient Tobacco Use Status Never used Tobacco 07/30/24 14:29 e-Cigarette/Vaping Use Never Used 07/30/24 14:29 Thrive Assessment: Date of Thrive Assessment Date Thrive assessed 07/01/24 07/30/24 14:29 Const Other: Physical exam not performed due to telehealth visit. Telehealth Telehealth Telehealth Platform: Telephone Location of provider rendering services: practice address Location of patient: address on file Patient Identification confirmed using: Name, : Yes Telehealth method: voice only Patient verbally consented to treatment: Yes Patient verbally consented to billing insurance company: Yes Patient informed of any privacy concerns related to visit: Yes Coding Level of Care Code Est Pt Level 3 (80973) Diagnoses Lightheadedness R42 Assessment & Plan Assessment & Plan (1) Lightheadedness: Code(s): R42 - Dizziness and giddiness Category: Medical Plan: Blood work was reviewed and reassuring with no evidence of an organic cause of the dizziness. Advised patient to increase water intake include drinks with electrolytes such as Gatorade or liquid IV. Also advised patient to keep a log of her symptoms to identify any possible triggers. Patient agrees to follow up if symptoms become more persistent severe. Follow up as needed for this concern. Plan This note was constructed using voice recognition software. While every effort has been made to ensure accuracy and power line installer, still areas may have been included sometimes these areas may affect the content or meeting of the given symptoms. Total time spent caring for the patient today was 15 minutes. This includes time spent before the visit reviewing the chart, time spent during the visit, and time spent after the visit and documentation.
== END 2024-07-30 14:46 | disposition home or self-care (01) ==
LOC: HO.HMCH 14:28
PROVIDERS: PCP Internal Medicine
DX: R42 Dizziness and giddiness (principal)

== ENCOUNTER → 2024-07-30 14:28 | Outpatient (BNVA) | payer OTHER, SELFPAY | PROVIDERS: PCP Internal Medicine | DX: R42 Dizziness and giddiness (principal) | CPT/HCPCS: 99212 ==